=== PATIENT | female | born 1990 | race Caucasian/White ===

== ENCOUNTER 2021-02-18 21:12 | Emergency (ER) | payer OTHER ==
[~2021-02-18] VITALS: Ht 160 cm; Wt 58.0 kg
[2021-02-18] MEDS ORDERED: LAMO100 PO (22:22)
[2021-02-18] MEDS ORDERED: SUMA25TA9 PO (22:22)
[2021-02-18] MEDS ORDERED: FLUO20CA36 PO (22:22)
[2021-02-18] MEDS ORDERED: HYD25 PO (22:22)
[2021-02-18] MEDS ORDERED: VALA10002 PO (22:22)
[2021-02-18] MEDS ORDERED: NORT10 PO (22:22)
[2021-02-18] MEDS ORDERED: PROP10TA73 PO (22:22)
[2021-02-19] VITALS: BP 111/65
[2021-02-19] MEDS ORDERED: IBUPROFEN 600 MG TABLET PO ONE
== END 2021-02-19 00:32 | disposition home or self-care (01) ==
LOC: EMS 21:16
DX: M25.512 Pain in left shoulder (principal); M62.838 Other muscle spasm; M54.2 Cervicalgia
CPT/HCPCS: 99283